=== PATIENT | male | born 1990 ===

== ENCOUNTER 2017-03-03 21:21 | Emergency (ER) | payer SELFPAY ==
[2017-03-03 22:03] VITALS: BMI 33.9
[2017-03-03 22:09] VITALS: TEMP 98.1
[2017-03-03] MEDS ORDERED: Amoxicillin-Clav 875-125 mg Tab PO STA (22:19)
[2017-03-03] MEDS ORDERED: Rabies Immune Globulin 150 INTLU/ML VIAL IM ONE (22:20)
[2017-03-03] MEDS ORDERED: RABIES VACCINE 2.5 U PDR IM ONE (22:20)
--- NOTE | 2017-03-03 22:28 | ED PDOC ---
Arrival/HPI - General Chief Complaint: Bite Time Seen by Provider: 03/03/17 22:19 Historian: Patient - History of Present Illness Narrative History of Present Illness (Text): 03/03/17 22:33 A 26 year old male, who denies any past medical history, presents to the emergency department complaining of a cat bite to left thumb today. Patient reports his boss grabbed and took the cat to the brusher hand, who reported the cat has rabies. Last tetanus shot was last year. Denies any other complaints at this time. Symptom Onset: Sudden Symptom Course: Unchanged Activities at Onset: Rest Associated Symptoms (Text): none Past Medical History - Provider Review Nursing Documentation Reviewed: Yes - Psychiatric Hx Substance Use: No - Anesthesia Hx Anesthesia: No Family/Social History - Physician Review Nursing Documentation Reviewed: Yes Family/Social History: No Known Family HX Smoking Status: Light Smoker < 10 Cigarettes Daily Hx Alcohol Use: Yes Frequency of alcohol use: Socially Hx Substance Use: No Allergies/Home Meds Allergies/Adverse Reactions: Allergies No Known Allergies Allergy (Verified 03/03/17 22:04) Review of Systems - Physician Review All systems were reviewed & negative as marked: Yes - Review of Systems Constitutional: absent: Fevers Respiratory: absent: SOB Skin: Other (bite wound to left thumb) Physical Exam - Physical Exam Narrative Physical Exam (Text): 03/03/17 22:31 Constitutional: No acute distress. Head: Normocephalic. Atraumatic. Eyes: PERRL. ENT: Moist mucous membranes. Neck: Supple. Cardiovascular: Regular rate. Musculoskeletal: No tenderness or swelling of extremities. Skin: 1 cm bite wound to left thumb, no discharge, no separable edges. No rash. Neurologic: Alert, no focal deficit. Vital Signs Reviewed: Yes Vital Signs Temp Pulse Resp BP Pulse Ox 03/03/17 22:05 98.1 F 59 L 16 128/76 98 Temperature: Afebrile Blood Pressure: Normal Pulse: Bradycardic Respiratory Rate: Normal Appearance: Positive for: Well-Appearing, Non-Toxic, Comfortable Pain Distress: None Mental Status: Positive for: Alert and Oriented X 3 Medical Decision Making ED Course and Treatment: 03/03/17 22:29 Impression: A 26 year old male with cat bite to left thumb. Plan: -- Rabavert Vaccine Inj -- Imogam -- Augmentin -- Reassess and disposition Progress Notes: I have discussed the plan with the patient, who expresses understanding. Patient in agreement with plan to be discharged home. Patient is stable for discharge. Patient was instructed to follow up with physician or return if symptoms worsen or new concerning symptoms arise. - Medication Orders Current Medication Orders: Discontinued Medications Amoxicillin/Clavulanate Potassium (Augmentin 875 Mg-125 Mg Tab) 1 tab PO STAT STA PRN Reason: Protocol Stop: 03/03/17 22:20 Rabies Immune Globulin (Imogam) 2,260 intlu IM .ONCE ONE Stop: 03/03/17 22:21 Rabies Vaccine Human Diploid Cell (Rabavert Vaccine Inj) 2.5 u IM .ONCE ONE Stop: 03/03/17 22:21 - Scribe Statement The provider has reviewed the documentation as recorded by the Edin Cadet Provider Scribe Attestation: All medical record entries made by the Scribe were at my direction and personally dictated by me. I have reviewed the chart and agree that the record accurately reflects my personal performance of the history, physical exam, medical decision making, and the department course for this patient. I have also personally directed, reviewed, and agree with the discharge instructions and disposition. Disposition/Present on Arrival - Present on Arrival Any Indicators Present on Arrival: No History of DVT/PE: No History of Uncontrolled Diabetes: No Urinary Catheter: No History of Decub. Ulcer: No History Surgical Site Infection Following: None - Disposition Have Diagnosis and Disposition been Completed?: Yes Diagnosis: Cat bite, Rabies exposure Disposition: HOME/ ROUTINE Disposition Time: 22:25 Patient Plan: Discharge Patient Problems: Current Active Problems Problem Status Onset Cat bite Acute Rabies exposure Acute Condition: STABLE Discharge Instructions (ExitCare): Rabies (ED) Additional Instructions: Return to ER on: Monday, 03/06, 03/10, 03/17 for your 2nd, 3rd, and 4th rabies vaccine doses. Prescriptions: Amoxicillin/Clavulanate [Augmentin 875 MG-125 MG] 1 tab PO BID #20 tab
[2017-03-03 23:25] VITALS: BP 129/76; PULSE 65; RESP 18; O2SAT 100
== END 2017-03-03 23:25 | disposition home or self-care (01) ==
LOC: ED 21:21
DX: S61.052A Open bite of left thumb without damage to nail, initial encounter (principal); W55.01XA Bitten by cat, initial encounter; Z23 Encounter for immunization

== ENCOUNTER 2017-03-06 18:44 | Emergency (ER) | payer SELFPAY ==
[2017-03-06 18:45] VITALS: BMI 33.9
[2017-03-06 19:09] VITALS: BP 138/75; PULSE 93; RESP 18; TEMP 98.7; O2SAT 96
[2017-03-06] MEDS ORDERED: Rabies Vaccine 2.5 U VIAL IM ONE (19:40)
[2017-03-06] MEDS ORDERED: RABIES VACCINE 2.5 U PDR IM ONE (20:00)
--- NOTE | 2017-03-14 17:48 | ED PDOC ---
Arrival/HPI - General Chief Complaint: Rabies Vaccine Series Time Seen by Provider: 03/10/17 19:14 Historian: Patient - History of Present Illness Narrative History of Present Illness (Text): Patient seen by provider on 03/06/17 at 1900. Patient presents to the emergency room for his second rabies vaccine after being bitten by cat 3 days ago. Otherwise the patient denies any fever, chills, pain, swelling, redness or discharge to his wound. Past Medical History - Provider Review Nursing Documentation Reviewed: Yes - Psychiatric Hx Substance Use: No - Anesthesia Hx Anesthesia: No Family/Social History - Physician Review Nursing Documentation Reviewed: Yes Family/Social History: Unknown Family HX Smoking Status: Never Smoked Hx Alcohol Use: No Hx Substance Use: No Allergies/Home Meds Allergies/Adverse Reactions: Allergies No Known Allergies Allergy (Verified 03/18/17 08:59) Home Medications: Home Meds Medication Instructions Recorded Confirmed No Known Home Med 03/10/17 03/18/17 Review of Systems - Review of Systems Constitutional: Normal. absent: Fatigue, Weight Change, Fevers Musculoskeletal: Normal. absent: Arthralgias, Back Pain, Neck Pain Skin: Normal, Other (Cat bite). absent: Rash, Pruritis, Skin Lesions, Laceration Physical Exam Vital Signs Reviewed: Yes Vital Signs Temp Pulse Resp BP Pulse Ox 03/06/17 19:08 98.7 F 93 H 18 138/75 96 Temperature: Afebrile Blood Pressure: Normal Pulse: Regular Respiratory Rate: Normal Appearance: Positive for: Well-Appearing, Non-Toxic, Comfortable Pain Distress: None Mental Status: Positive for: Alert and Oriented X 3 - Systems Exam Head: Present: Atraumatic, Normocephalic Upper Extremity: Present: Normal Inspection, Normal ROM. No: Edema Lower Extremity: Present: Normal Inspection, Normal ROM. No: Edema Neurological: Present: GCS=15, CN II-XII Intact Skin: Present: Warm, Dry, Normal Color. No: Rashes Medical Decision Making ED Course and Treatment: 03/14/17 17:47 26-year-old male presents to the emergency room for second rabies vaccination. Otherwise has no complaints. Rabies vaccine administered to the patient and advised to return for his third and fourth rabies vaccine. - Medication Orders Current Medication Orders: Discontinued Medications Rabies Vaccine Human Diploid Cell (Rabavert Vaccine Inj) 2.5 u IM .ONCE ONE Stop: 03/06/17 20:01 Last Admin: 03/06/17 20:05 Dose: 2.5 u - PA / WARP KNITTING MACHINE OPERATOR / Resident Statement /DO has reviewed & agrees with the documentation as recorded. Disposition/Present on Arrival - Present on Arrival Any Indicators Present on Arrival: No History of DVT/PE: No History of Uncontrolled Diabetes: No Urinary Catheter: No History of Decub. Ulcer: No History Surgical Site Infection Following: None - Disposition Have Diagnosis and Disposition been Completed?: Yes Diagnosis: Rabies, need for prophylactic vaccination against Disposition: HOME/ ROUTINE Disposition Time: 19:30 Patient Plan: Discharge Condition: STABLE Discharge Instructions (ExitCare): Rabies Vaccine (By injection) Print Language: URDU Referrals: [facility] Jacquie Basilio, [Non-Staff] - Follow up with primary
== END 2017-03-06 20:08 | disposition home or self-care (01) ==
LOC: ED 18:44
DX: Z23 Encounter for immunization (principal)

== ENCOUNTER 2017-03-10 18:39 | Emergency (ER) | payer SELFPAY ==
[2017-03-10 18:40] VITALS: BMI 33.9
[2017-03-10 19:15] VITALS: TEMP 98.4
[2017-03-10] MEDS ORDERED: RABIES VACCINE 2.5 U PDR IM ONE (19:18)
--- NOTE | 2017-03-10 19:22 | ED PDOC ---
Arrival/HPI - General Chief Complaint: Rabies Vaccine Series Time Seen by Provider: 03/10/17 19:14 Historian: Patient - History of Present Illness Narrative History of Present Illness (Text): 03/10/17 19:19 26 y/o male, here for the rabies vaccination #3, nkda. Pt. stated that he had the rabies vaccination on day 0 03/03/2017, day 1 on 03/06/2017, day 7 on 2016 which is today. Pt. stated that the wound healing well and dry, no fever or chills, no adverse reaction or side effect of the rabies vaccination. Past Medical History - Provider Review Nursing Documentation Reviewed: Yes - Psychiatric Hx Substance Use: No - Anesthesia Hx Anesthesia: No Family/Social History - Physician Review Nursing Documentation Reviewed: Yes Family/Social History: Unknown Family HX Smoking Status: Never Smoked Hx Alcohol Use: No Hx Substance Use: No Allergies/Home Meds Allergies/Adverse Reactions: Allergies No Known Allergies Allergy (Verified 03/10/17 19:10) Home Medications: Home Meds Medication Instructions Recorded Confirmed No Known Home Med 03/10/17 03/10/17 Review of Systems - Review of Systems Constitutional: absent: Fatigue, Fevers Eyes: absent: Vision Changes ENT: absent: Hearing Changes Respiratory: absent: SOB, Cough Cardiovascular: absent: Chest Pain Gastrointestinal: absent: Abdominal Pain Physical Exam Vital Signs Reviewed: Yes Vital Signs Temp Pulse Resp BP Pulse Ox 03/10/17 19:10 98.4 F 63 15 145/84 96 Temperature: Afebrile Blood Pressure: Normal Pulse: Regular Respiratory Rate: Normal Appearance: Positive for: Well-Appearing, Non-Toxic, Comfortable Pain Distress: None Mental Status: Positive for: Alert and Oriented X 3 - Systems Exam Head: Present: Atraumatic, Normocephalic Pupils: Present: PERRL Extroacular Muscles: Present: EOMI Conjunctiva: Present: Normal Mouth: Present: Moist Mucous Membranes Neck: Present: Normal Range of Motion Respiratory/Chest: Present: Clear to Auscultation, Good Air Exchange. No: Respiratory Distress, Accessory Muscle Use Cardiovascular: Present: Regular Rate and Rhythm, Normal S1, S2. No: Murmurs Abdomen: Present: Normal Bowel Sounds. No: Tenderness, Distention, Peritoneal Signs Back: Present: Normal Inspection Upper Extremity: Present: Normal Inspection. No: Cyanosis, Edema Lower Extremity: Present: Normal Inspection. No: Edema Neurological: Present: GCS=15, Speech Normal, Motor Func Grossly Intact, Gait Normal, Memory Normal Skin: Present: Warm, Dry, Normal Color. No: Rashes Psychiatric: Present: Alert, Oriented x 3, Normal Insight, Normal Concentration Medical Decision Making ED Course and Treatment: 03/10/17 19:22 -rabies vaccination order. -Discharge home with education on continue the rabies vaccination schedule, follow up with your own pmd within 2 days, return to the ER for any new or worsening signs or symptoms. - PA / PAI GOW DEALER / Resident Statement MD/DO has reviewed & agrees with the documentation as recorded. Disposition/Present on Arrival - Present on Arrival Any Indicators Present on Arrival: No History of DVT/PE: No History of Uncontrolled Diabetes: No Urinary Catheter: No History of Decub. Ulcer: No History Surgical Site Infection Following: None - Disposition Have Diagnosis and Disposition been Completed?: Yes Diagnosis: Need for rabies vaccination Disposition: HOME/ ROUTINE Disposition Time: 19:23 Patient Plan: Discharge Condition: GOOD Additional Instructions: -Discharge home with education on continue the rabies vaccination schedule, follow up with your own pmd within 2 days, return to the ER for any new or worsening signs or symptoms. Referrals: [facility] [place] [Outside] - Follow up with primary Forms: [employer] (Hong Konger)
[2017-03-10 20:16] VITALS: BP 138/76; PULSE 70; RESP 16; O2SAT 98
--- NOTE | 2017-03-14 17:48 | ED PDOC ---
Arrival/HPI - General Chief Complaint: Rabies Vaccine Series Time Seen by Provider: 03/10/17 19:14 Historian: Patient - History of Present Illness Narrative History of Present Illness (Text): Patient seen by provider on 03/06/17 at 1900. Patient presents to the emergency room for his second rabies vaccine after being bitten by cat 3 days ago. Otherwise the patient denies any fever, chills, pain, swelling, redness or discharge to his wound. Past Medical History - Provider Review Nursing Documentation Reviewed: Yes - Psychiatric Hx Substance Use: No - Anesthesia Hx Anesthesia: No Family/Social History - Physician Review Nursing Documentation Reviewed: Yes Family/Social History: Unknown Family HX Smoking Status: Never Smoked Hx Alcohol Use: No Hx Substance Use: No Allergies/Home Meds Allergies/Adverse Reactions: Allergies No Known Allergies Allergy (Verified 03/10/17 19:10) Home Medications: Home Meds Medication Instructions Recorded Confirmed No Known Home Med 03/10/17 03/10/17 Review of Systems - Review of Systems Constitutional: Normal. absent: Fatigue, Weight Change, Fevers Musculoskeletal: Normal. absent: Arthralgias, Back Pain, Neck Pain Skin: Normal, Other (Cat bite). absent: Rash, Pruritis, Skin Lesions, Laceration Physical Exam Vital Signs Reviewed: Yes Vital Signs Temp Pulse Resp BP Pulse Ox 03/10/17 20:16 70 16 138/76 98 03/10/17 19:10 98.4 F 63 15 145/84 96 Temperature: Afebrile Blood Pressure: Normal Pulse: Regular Respiratory Rate: Normal Appearance: Positive for: Well-Appearing, Non-Toxic, Comfortable Pain Distress: None Mental Status: Positive for: Alert and Oriented X 3 - Systems Exam Head: Present: Atraumatic, Normocephalic Upper Extremity: Present: Normal Inspection, Normal ROM. No: Edema Lower Extremity: Present: Normal Inspection, Normal ROM. No: Edema Neurological: Present: GCS=15, CN II-XII Intact Skin: Present: Warm, Dry, Normal Color. No: Rashes Medical Decision Making ED Course and Treatment: 03/14/17 17:47 26-year-old male presents to the emergency room for second rabies vaccination. Otherwise has no complaints. Rabies vaccine administered to the patient and advised to return for his third and fourth rabies vaccine. - Medication Orders Current Medication Orders: Discontinued Medications Rabies Vaccine Human Diploid Cell (Rabavert Vaccine Inj) 2.5 u IM .ONCE ONE Stop: 03/10/17 19:19 Last Admin: 03/10/17 20:10 Dose: 2.5 u - PA / GREEN CHAIN PULLER / Resident Statement /DO has reviewed & agrees with the documentation as recorded. Disposition/Present on Arrival - Present on Arrival Any Indicators Present on Arrival: No History of DVT/PE: No History of Uncontrolled Diabetes: No Urinary Catheter: No History of Decub. Ulcer: No History Surgical Site Infection Following: None - Disposition Have Diagnosis and Disposition been Completed?: Yes Diagnosis: Need for rabies vaccination Disposition: HOME/ ROUTINE Disposition Time: 19:30 Patient Plan: Discharge Condition: GOOD Discharge Instructions (ExitCare): Rabies Vaccine (By injection) Print Language: SPANISH Additional Instructions: -Discharge home with education on continue the rabies vaccination schedule, follow up with your own pmd within 2 days, return to the ER for any new or worsening signs or symptoms. Referrals: [facility] [place]] - Follow up with primary Forms: [employer] (Irish)
== END 2017-03-10 20:16 | disposition home or self-care (01) ==
LOC: ED 18:39
DX: Z23 Encounter for immunization (principal)

== ENCOUNTER 2017-03-18 08:21 | Emergency (ER) | payer OTHER ==
[2017-03-18 08:21] VITALS: BMI 33.9
[2017-03-18 08:59] VITALS: BP 146/80; PULSE 68; RESP 18; TEMP 98; O2SAT 98
[2017-03-18] MEDS ORDERED: RABIES VACCINE 2.5 U PDR IM ONE (09:00)
--- NOTE | 2017-03-18 09:05 | ED PDOC ---
Arrival/HPI - General Historian: Patient - History of Present Illness Time/Duration: 1 week Symptom Onset: Sudden Symptom Course: Unchanged Quality: Other Severity Level: 1 Activities at Onset: Rest Context: Other (cat bite) <Melquiades Membreno - Last Filed: 03/18/17 09:01> <Rudi Cheatham - Last Filed: 03/18/17 10:54> - General Chief Complaint: Rabies Vaccine Series Time Seen by Provider: 03/18/17 08:30 - History of Present Illness Narrative History of Present Illness (Text): 03/18/17 09:02 This is a 26 yr. old male with no past medical history who comes into the [facility] for the last shot in the rabies vaccination series. The patient was bitten two weeks ago by a cat. The cat was brought to the Nipple Machine Operator who determined that the patient would need the rabies vaccine series. The patient denies any nausea, vomiting, chest pain, shortness of breath , discharge from the wound, erythema, swelling or any other complaints. ( Melquiades Membreno) Past Medical History - Provider Review Nursing Documentation Reviewed: Yes - Past History Past History: No Previous - Psychiatric Hx Substance Use: No - Anesthesia Hx Anesthesia: No <Melquiades Membreno - Last Filed: 03/18/17 09:01> - Provider Review Nursing Documentation Reviewed: Yes <Rudi Cheatham - Last Filed: 03/18/17 10:54> Family/Social History Smoking Status: Light Smoker < 10 Cigarettes Daily Hx Alcohol Use: Yes Hx Substance Use: No <Melquiades Membreno - Last Filed: 03/18/17 09:01> - Physician Review Nursing Documentation Reviewed: Yes Family/Social History: No Known Family HX <Rudi Cheatham - Last Filed: 03/18/17 10:54> Allergies/Home Meds <Melquiades Membreno - Last Filed: 03/18/17 09:01> <Rudi Cheatham - Last Filed: 03/18/17 10:54> Allergies/Adverse Reactions: Allergies No Known Allergies Allergy (Verified 03/18/17 08:59) Home Medications: Home Meds Medication Instructions Recorded Confirmed No Known Home Med 03/10/17 03/18/17 Review of Systems - Physician Review All systems were reviewed & negative as marked: Yes - Review of Systems Constitutional: Normal Eyes: Normal ENT: Normal Respiratory: Normal Cardiovascular: Normal Gastrointestinal: Normal Genitourinary Male: Normal Skin: Normal Neurological: Normal Endocrine: Normal Hemo/Lymphatic: Normal <Melquiades Membreno - Last Filed: 03/18/17 09:01> Physical Exam Temperature: Afebrile Blood Pressure: Normal Pulse: Regular Respiratory Rate: Normal Appearance: Positive for: Well-Appearing, Non-Toxic, Comfortable Pain Distress: None Mental Status: Positive for: Alert and Oriented X 3 - Systems Exam Head: Present: Atraumatic, Normocephalic Pupils: Present: PERRL. No: Non-Reactive Extroacular Muscles: Present: EOMI Conjunctiva: Present: Normal. No: Injected Mouth: Present: Moist Mucous Membranes. No: Dry Neck: Present: Normal Range of Motion. No: JVD, Lymphadenopathy Respiratory/Chest: Present: Clear to Auscultation, Good Air Exchange. No: Respiratory Distress, Accessory Muscle Use, Wheezes Cardiovascular: Present: Regular Rate and Rhythm, Normal S1, S2. No: Murmurs, Tachycardic, Bradycardic Abdomen: Present: Tenderness, Normal Bowel Sounds. No: Guarding Upper Extremity: Present: Normal Inspection. No: Cyanosis, Edema, Erythema Lower Extremity: Present: Normal Inspection. No: Edema, Cyanosis Neurological: Present: CN II-XII Intact, Speech Normal Skin: Present: Dry, Normal Color. No: Warm, Rashes, Cold Psychiatric: Present: Alert, Oriented x 3, Normal Insight, Normal Concentration <Melquiades Membreno - Last Filed: 03/18/17 09:01> Medical Decision Making <Melquiades Membreno - Last Filed: 03/18/17 09:01> <Rudi Cheatham - Last Filed: 03/18/17 10:54> ED Course and Treatment: 03/18/17 09:08 Patient came to the [facility] for his last shot in the rabies vaccination series. Patient denies any symptoms at this time. Patient will be re-evaluated after administering the shot and to f/u with PMD within a week. 03/18/17 09:11 (Melquiades Membreno) 03/18/17 09:19 Patient seen and examined with resident. Came up with treatment and disposition plan with resident. (Rudi Cheatham) - Medication Orders Current Medication Orders: Discontinued Medications Rabies Vaccine Human Diploid Cell (Rabavert Vaccine Inj) 2.5 u IM .ONCE ONE Stop: 03/18/17 09:01 Last Admin: 03/18/17 09:16 Dose: 2.5 u Disposition/Present on Arrival - Present on Arrival Any Indicators Present on Arrival: No History of DVT/PE: No History of Uncontrolled Diabetes: No Urinary Catheter: No History of Decub. Ulcer: No History Surgical Site Infection Following: None - Disposition Have Diagnosis and Disposition been Completed?: Yes Disposition Time: 09:00 Patient Plan: Discharge <Melquiades Membreno - Last Filed: 03/18/17 09:01> <Rudi Cheatham - Last Filed: 03/18/17 10:54> - Disposition Diagnosis: Need for rabies vaccination Disposition: HOME/ ROUTINE Condition: GOOD Discharge Instructions (ExitCare): Rabies Vaccine (ED) Additional Instructions: Patient is to F/U with PMD within a week. Patient is to return to [facility] for any new or concerning symptoms. Forms: [employer] (Nicaraguan), [employer] (Mohawk)
== END 2017-03-18 09:25 | disposition home or self-care (01) ==
LOC: ED 08:21
DX: Z23 Encounter for immunization (principal)